=== PATIENT | male | born 1985 | race Two or more races ===

== ENCOUNTER 2018-08-08 23:24 | Emergency (ER) | payer MEDICAID, OTHER ==
[~2018-08-08] VITALS: Ht 177.8 cm; Wt 81.6 kg
[2018-08-08 23:24] VITALS: BP 132/80
[2018-08-09] MEDS ORDERED: IBUPROFEN 600 MG TABLET PO ONE ×2 (02:53→03:00)
== END 2018-08-09 03:16 | disposition home or self-care (01) ==
LOC: ER 23:25
DX: F29 Unspecified psychosis not due to a substance or known physiological condition (principal); M79.605 Pain in left leg; M79.604 Pain in right leg